=== PATIENT | female | born 1945 | race Caucasian/White ===

== ENCOUNTER 2017-05-25 13:00 | Inpatient (IN) ==
[2017-05-25 14:46] LABS: Basophils # (Auto) 0 K/mcL (0.0-0.3); Basophils % (Auto) 0.3 % (0.0-2.0); Eosinophils # (Auto) 0.2 K/mcL (0.0-0.7); Eosinophils % (Auto) 3.4 % (0.0-7.0); Granulocytes % (Auto) 67.5 % (38.0-78.0); Lymphocytes # (Auto) 1.8 K/mcL (1.5-4.8); Lymphocytes % (Auto) 23.8 % (15.5-49.0); Mean Corpuscular HGB Conc 32.6 g/dL (31.0-36.0); Mean Corpuscular Hemoglobin 26.7 pg (26.0-34.0); Monocytes # (Auto) 0.4 K/mcL (0.1-0.9); Platelet Count 280 K/mcL (140-440); Red Cell Distribution Width 16.1 % (11.5-14.5)
[2017-05-25 15:25] LABS: Appearance,Urine HAZY; Bilirubin,Urine NEG (NEG); Color,Urine YELLOW; Glucose,Urine (UA) NEGATIVE (NEG); Leukocyte Esterase,Urine NEG /uL (NEG); Nitrate,Urine NEG (NEG); Protein,Urine NEG (NEG); Urine Blood NEG mg/dL (<0.03); Urobilinogen,Urine NEG (NEG)
[2017-05-25 15:51] LABS: Blood Urea Nitrogen 32 mg/dl (8-23)
[2017-05-27] MEDS ORDERED: oxyCODONE 10 MG TAB.ER.12H PO SCH (05:00)
[2017-05-27] MEDS ORDERED: GABAPENTIN 100 MG CAPSULE PO SCH (05:00)
[2017-05-27] MEDS ORDERED: ceFAZolin 1 GM VIAL IV SCH (05:00)
[2017-05-27] MEDS ORDERED: CELECOXIB 200 MG CAPSULE PO SCH (05:00)
[2017-05-27] MEDS ORDERED: KETOROLAC 30 MG, ROPIVACAINE HCL/PF 49.5 ML, EPINEPHrine 0.5 MG, 0.9 % SODIUM CHLORIDE ... IJ SCH (06:30)
[2017-05-27] MEDS ORDERED: 0.9 % SODIUM CHLORIDE 250 ML IV SCH (08:00)
[2017-05-27] MEDS: GABAPENTIN 100 MG CAPSULE PO SCH (10:00)
[2017-05-27] MEDS ORDERED: DEXAMETHASONE 10 MG/ML VIAL IV ONE (11:45)
[2017-05-27] MEDS ORDERED: MIDAZOLAM 5 MG/5 ML VIAL IV ONE (11:45)
[2017-05-27] MEDS ORDERED: ROPIVACAINE HCL/PF 30 ML VIAL IJ ONE (11:45)
[2017-05-27] MEDS ORDERED: LIDOCAINE HCL/PF 100 MG/5 ML SYRINGE IV ONE (11:45)
[2017-05-27] MEDS ORDERED: GLYCOPYRROLATE 0.2 MG/ML VIAL IV ONE (11:45)
[2017-05-27] MEDS ORDERED: PROPOFOL 200 MG/20 ML VIAL IV ONE (11:45)
[2017-05-27] MEDS ORDERED: ONDANSETRON 4 MG/2 ML VIAL IV ONE (11:45)
[2017-05-27] MEDS ORDERED: HYDROmorphone 2 MG/ML SYRINGE IV PRN ×2 (13:31→13:35)
[2017-05-27] MEDS ORDERED: ePHEDrine 50 MG/ML AMPUL IV PRN (13:31)
[2017-05-27] MEDS ORDERED: METHOCARBAMOL 1,000 MG/10 ML VIAL IV PRN (13:31)
[2017-05-27] MEDS ORDERED: NALOXONE HCL 0.4 MG/ML VIAL IV PRN (13:31)
[2017-05-27] MEDS ORDERED: fentaNYL 100 MCG/2 ML VIAL IV PRN (13:31)
[2017-05-27] MEDS ORDERED: ATROPINE SULFATE 0.4 MG/ML VIAL IV PRN (13:31)
[2017-05-27] MEDS ORDERED: MEPERIDINE 25 MG/ML SYRINGE IV PRN (13:31)
[2017-05-27] MEDS ORDERED: BENZOCAINE/MENTHOL 1 LOZENGE PO PRN (13:31)
[2017-05-27] MEDS ORDERED: IPRATROPIUM/ALBUTEROL 3 ML AMPUL.NEB NEB PRN (13:31)
[2017-05-27] MEDS ORDERED: METOPROLOL TARTRATE 5 MG/5 ML VIAL IV PRN (13:31)
[2017-05-27] MEDS ORDERED: diphenhydrAMINE 50 MG/ML VIAL IV PRN (13:31)
[2017-05-27] MEDS ORDERED: ONDANSETRON 4 MG/2 ML VIAL IV PRN ×2 (13:31→13:35)
[2017-05-27] MEDS ORDERED: FLUMAZENIL 0.1 MG/ML ML IV PRN (13:31)
[2017-05-27] MEDS ORDERED: MAGNESIUM HYDROXIDE 30 ML ORAL.SUSP PO PRN (13:35)
[2017-05-27] MEDS ORDERED: BISACODYL 10 MG SUPP.RECT PR PRN (13:35)
[2017-05-27] MEDS ORDERED: POLYETHYLENE GLYCOL 3350 17 GM PACKET PO PRN (13:35)
[2017-05-27] MEDS ORDERED: FLEETS ADULT ENEMA PR PRN (13:35)
[2017-05-27] MEDS ORDERED: oxyCODONE/APAP 5/325MG TABLET PO PRN (13:35)
[2017-05-27] MEDS ORDERED: TRANEXAMIC ACID 1,000 MG/10 ML VIAL IV ONE (13:35)
--- NOTE | 2017-05-27 13:35 | Brief Operative Note ---
Date of procedure: 05/27/17 Pre-op diagnosis: Right knee DJD Post-op diagnosis: same Procedure: Right robotic assisted total knee arthroplasty Grafts/Implants: Yes ([place] [employer] PS 2 femur, 3 tibia, 13 mm insert, 33 patella) Anesthesia: spinal, GLMA Findings: arthritis Complications: none Surgeon: Scout Armas Kier Operator: Linwood Hyman Estimated blood loss (cc): 30 Specimens Removed/Pathology: none sent Condition: stable Disposition: PACU
[2017-05-27] MEDS ORDERED: DEXTROSE 50% 50 ML VIAL IV PRN (13:40)
[2017-05-27] MEDS ORDERED: LACTATED RINGERS 1,000 ML IV SCH (13:45)
--- NOTE | 2017-05-27 14:30 | XRay Report ---
CLINICAL INFORMATION: Postsurgical follow-up TECHNIQUE: AP, crosstable lateral, patellar views COMPARISON: None. FINDINGS: Status post right total knee arthroplasty. Femoral and tibial complements are in anatomic positions. Soft tissue and intra-articular gas. There are skin tom anteriorly IMPRESSION: Status post right total knee arthroplasty. Interpreted and Authenticated by: Markell Barboza 05/27/17
[2017-05-27] MEDS: 0.9 % SODIUM CHLORIDE 1,000 ML IV SCH (14:31)
[2017-05-27] MEDS ORDERED: LACTASE 1 TABLET PO PRN (15:00)
[2017-05-27] MEDS: 0.9 % SODIUM CHLORIDE 10 ML SYRINGE IV SCH (15:34)
[2017-05-27] MEDS: metFORMIN 500 MG TABLET PO SCH (17:56)
[2017-05-27] MEDS: KETOROLAC 30 MG/ML VIAL IV SCH (17:56)
[2017-05-27] MEDS: INSULIN LISPRO 1 UNIT/0.01 ML UNIT SQ SCH ×2 (18:00→21:00)
[2017-05-27] MEDS: BENZOCAINE/MENTHOL 1 LOZENGE PO PRN (22:04)
[2017-05-27] MEDS: ASPIRIN 325 MG ENTERIC COATED TABLET PO SCH (22:04)
[2017-05-27] MEDS: DOCUSATE SODIUM 100 MG CAPSULE PO SCH (22:05)
[2017-05-28] MEDS: SENNOSIDES 1 TABLET PO SCH ×2 (00:21→20:57)
[2017-05-28] MEDS: ceFAZolin 1 GM VIAL IV SCH ×2 (00:38→05:11)
[2017-05-28] MEDS: KETOROLAC 30 MG/ML VIAL IV SCH ×4 (00:39→17:23)
[2017-05-28] MEDS: 0.9 % SODIUM CHLORIDE 10 ML SYRINGE IV SCH ×4 (00:55→23:31)
[2017-05-28] MEDS: 0.9 % SODIUM CHLORIDE 1,000 ML IV SCH ×3 (02:00→22:00)
[2017-05-28] MEDS: BENZOCAINE/MENTHOL 1 LOZENGE PO PRN (04:37)
[2017-05-28] MEDS: metFORMIN 500 MG TABLET PO SCH ×2 (07:54→17:22)
[2017-05-28] MEDS: GABAPENTIN 100 MG CAPSULE PO SCH ×2 (07:54→20:55)
[2017-05-28] MEDS: LEVOTHYROXINE 100 MCG TABLET PO SCH (07:54)
[2017-05-28] MEDS: INSULIN LISPRO 1 UNIT/0.01 ML UNIT SQ SCH ×4 (07:54→23:29)
--- NOTE | 2017-05-28 07:58 | Discharge Summary ---
Providers - Providers Patient information: Note initiated : 05/28/17 at 7:56 am Service Date, if different from initiated Date: [] Patient: Deandra Vasquez 72 y/o F admitted on 05/27/17 for Right Total Knee Arthroplasty with Robotic Assist. Chief Complaint: mild pain Discharge date: 05/28/17 Hospitalization Hospital course: Pt was admitted on day of procedure for a R total knee arthroplasty. Pt spent 2 nights on the floor for IV pain meds, IV abx, and PT. Pt was discharged to home with appropriate pain medication and ASA for DVT prophylaxis. Pt will follow-up at [facility] in 2 weeks. Discharge diagnosis: R knee osteoarthrosis Exam - Exam Clean and dry: Yes Weight bearing status: as tolerated Ortho Discharge - TKA - Patient Instructions Diet: Regular Diet Activity: activity as tolerated Total Knee Protocol: For Total Knee: Start ROM MOE with stationary bike or rocking chair. Work on gaining full extension of knee. Posterior dislocation precautions provided. Hip abductor strengthening and gait training instructions provided. Apply Cryocuff as instructed. Dressing Care: May shower in 2 days - Follow Up Plan Disposition: Home, Self-Care Prognosis: Good Rehab Potential: Good Overall status at discharge: patient is progressing back to baseline - Orders For Discharge Prescriptions: HYDROcodone/APAP 10/325MG [[place] 10/325Mg] 1 - 2 tab PO Q4-6HP PRN #90 tablet PRN Reason: Pain Additional Discharge Orders: Physical Therapy at Discharge - TKA Location: Determined By Patient Walker Location: Determined By Patient Pending Studies Resuscitation Status Full Code Diet Consistent Carbohydrate Diet Start ThuMay 27 Dinner Aspirin (Ecotrin) 325 mg PO BID [facility] Last Admin: 05/27/17 22:04 Dose: 325 mg Diagnostic Test (Pha) (Accu-Chek) 1 each FS ACHS [facility] Last Admin: 05/28/17 07:53 Dose: 1 each Admin: 05/27/17 21:42 Dose: 1 each Admin: 05/27/17 17:57 Dose: 1 each Docusate Sodium (Colace) 100 mg PO BID [facility] Last Admin: 05/27/17 22:05 Dose: 100 mg Gabapentin (Neurontin) 200 mg PO BID [facility] Last Admin: 05/28/17 07:54 Dose: 200 mg Admin: 05/27/17 10:00 Dose: 200 mg Sodium Chloride (Sodium Chloride 0.9%) 1,000 mls @ 100 mls/hr IV .Q10H [facility] Last Admin: 05/28/17 02:00 Dose: 100 mls/hr Infusion: 05/28/17 00:31 Dose: 100 mls/hr Admin: 05/27/17 14:31 Dose: 100 mls/hr Insulin Human Lispro (Humalog) 0 unit SQ ACHS [facility] PRN Reason: Protocol Last Admin: 05/28/17 07:54 Dose: 2 unit Admin: 05/27/17 21:00 Dose: Not Given Admin: 05/27/17 18:00 Dose: Not Given Ketorolac Tromethamine (Toradol) 30 mg IV Q6 [facility] Stop: 05/29/17 12:01 Last Admin: 05/28/17 05:59 Dose: 30 mg Admin: 05/28/17 00:39 Dose: 30 mg Admin: 05/27/17 17:56 Dose: 30 mg Levothyroxine Sodium (Synthroid) 100 mcg PO QAMAC [facility] Last Admin: 05/28/17 07:54 Dose: 100 mcg Metformin HCl (Glucophage) 500 mg PO BIDCC [facility] Last Admin: 05/28/17 07:54 Dose: 500 mg Admin: 05/27/17 17:56 Dose: 500 mg Senna (Senokot) 2 tab PO HS [facility] Last Admin: 05/28/17 00:21 Dose: Not Given Sodium Chloride (Saline Flush) 10 ml IV Q8 [facility] Last Admin: 05/28/17 05:49 Dose: Not Given Admin: 05/28/17 00:55 Dose: Not Given Admin: 05/27/17 15:34 Dose: Not Given Throat Lozenges (Cepacol) 1 lozenge PO PRN PRN PRN Reason: Sore Throat Last Admin: 05/28/17 04:37 Dose: 1 lozenge Admin: 05/27/17 22:04 Dose: 1 lozenge Shift Summary 05/28/17 04:09 Shift Summary by Zayda King Patient is alert and oriented x 4. Right leg is bandaged - Clean, dry, and intact. Bandaged not removed. Pedal pulse and capillary refill are WDL's to right leg. Patient is up to the bathroom x 1 this evening - good ambulation. Post void bladder scan = < 10. Pedal pumps on. Patient refuses ice packs to right knee. Toradol given x 1 with good effect. NS infusing @ 100mls/hr to left forearm IV. Initialized on 05/28/17 04:09 - END OF NOTE
[2017-05-28] MEDS ORDERED: PRAVASTATIN 20 MG TABLET PO SCH (09:00)
[2017-05-28] MEDS: SIMVASTATIN 10 MG TABLET PO SCH (09:21)
[2017-05-28] MEDS: MULTIVIT,THER IRON,CA,FA & MIN 1 TABLET PO SCH (09:22)
[2017-05-28] MEDS: PARoxetine 20 MG TABLET PO SCH (09:22)
[2017-05-28] MEDS: DOCUSATE SODIUM 100 MG CAPSULE PO SCH ×2 (09:22→20:56)
[2017-05-28] MEDS: ALLOPURINOL 100 MG TABLET PO SCH (09:22)
[2017-05-28] MEDS: MAGNESIUM OXIDE 400 MG TABLET PO SCH (09:23)
[2017-05-28] MEDS: LISINOPRIL 10 MG TABLET PO SCH (09:24)
[2017-05-28] MEDS: ASPIRIN 325 MG ENTERIC COATED TABLET PO SCH ×2 (09:25→20:56)
[2017-05-28] MEDS: METOPROLOL SUCCINATE 50 MG TAB.XL.24H PO SCH ×2 (09:45→17:22)
[2017-05-28] MEDS: CALCIUM MAGNESIUM ZINC PO SCH (09:46)
[2017-05-28] MEDS: traMADol 50 MG TABLET PO PRN ×3 (11:57→20:56)
[2017-05-28] MEDS ORDERED: CALCIUM CARBONATE 500 MG TAB.CHEW CHEWED ONE (17:16)
[2017-05-29] MEDS: KETOROLAC 30 MG/ML VIAL IV SCH ×3 (00:05→14:05)
[2017-05-29] MEDS: traMADol 50 MG TABLET PO PRN ×2 (01:55→06:41)
[2017-05-29] MEDS: 0.9 % SODIUM CHLORIDE 10 ML SYRINGE IV SCH (05:43)
[2017-05-29] MEDS: 0.9 % SODIUM CHLORIDE 1,000 ML IV SCH (05:55)
[2017-05-29] MEDS: LEVOTHYROXINE 100 MCG TABLET PO SCH (06:41)
[2017-05-29] MEDS: INSULIN LISPRO 1 UNIT/0.01 ML UNIT SQ SCH ×2 (06:44→11:39)
[2017-05-29] MEDS: metFORMIN 500 MG TABLET PO SCH (08:05)
[2017-05-29] MEDS: LISINOPRIL 10 MG TABLET PO SCH (08:49)
[2017-05-29] MEDS: PARoxetine 20 MG TABLET PO SCH (08:49)
[2017-05-29] MEDS: SIMVASTATIN 10 MG TABLET PO SCH (08:49)
[2017-05-29] MEDS: DOCUSATE SODIUM 100 MG CAPSULE PO SCH (08:49)
[2017-05-29] MEDS: ASPIRIN 325 MG ENTERIC COATED TABLET PO SCH (08:49)
[2017-05-29] MEDS: MAGNESIUM OXIDE 400 MG TABLET PO SCH (08:49)
[2017-05-29] MEDS: GABAPENTIN 100 MG CAPSULE PO SCH (08:49)
[2017-05-29] MEDS: MULTIVIT,THER IRON,CA,FA & MIN 1 TABLET PO SCH (08:49)
[2017-05-29] MEDS: ALLOPURINOL 100 MG TABLET PO SCH (08:49)
[2017-05-29] MEDS: METOPROLOL SUCCINATE 50 MG TAB.XL.24H PO SCH (08:50)
[2017-05-29] MEDS: CALCIUM MAGNESIUM ZINC PO SCH (08:50)
--- NOTE | 2017-05-29 12:03 | Orthopedic Progress Note ---
Subjective Patient information: Note initiated : 05/29/17 at 12:01 pm Service Date, if different from initiated Date: [] Patient: Deandra Vasquez 72 y/o F admitted on 05/27/17 for Right Total Knee Arthroplasty with Robotic Assist. Chief Complaint: [] Interval history: Pain bad overnight, better now with the percocet Objective Vital signs: Vital Signs Temp Pulse Resp BP Pulse Ox 05/29/17 11:20 98.1 F 20 154/64 97 05/29/17 06:19 98.8 F 16 137/65 96 05/29/17 04:00 97.1 F 62 18 138/64 95 05/29/17 00:00 98.1 F 59 L 16 145/71 97 05/28/17 20:00 98.5 F 65 18 133/87 97 05/28/17 15:34 97.7 F 59 L 22 131/53 98 Intake and Output 05/28/17 05/29/17 05/29/17 21:59 05:59 13:59 Intake Total 720 / 720 690 / 690 540 / 540 Output Total 1600 / 1600 800 / 800 Balance 720 / 720 -910 / -910 -260 / -260 Intake: Oral 480 / 480 690 / 690 540 / 540 GI Tube Flush 240 / 240 Output: Void Amount 1600 / 1600 800 / 800 Other: Meal Snack Breakfast Percent of Meal Consumed 100% 100% Feeding Ability Independent # Voids 2 Weight 212 lb 8 oz Intake & Output: Intake & Output 05/28/17 05/29/17 05/29/17 21:59 05:59 13:59 Intake Total 720 / 720 690 / 690 540 / 540 Output Total 1600 / 1600 800 / 800 Balance 720 / 720 -910 / -910 -260 / -260 Weight 212 lb 8 oz Intake: Oral 480 / 480 690 / 690 540 / 540 GI Tube Flush 240 / 240 Output: Void Amount 1600 / 1600 800 / 800 Other: Meal Snack Breakfast Percent of Meal Consumed 100% 100% Feeding Ability Independent # Voids 2 Dressing: Yes clean, Yes dry, Yes intact Neurological exam IM: Yes neurovascular intact - Labs CBC & BMP: 05/29/17 05:19 05/25/17 13:52 Labs: Orthopedic Labs 05/25/17 13:52 PT 13.3 INR 1.0 05/29/17 05/28/17 05/25/17 05:19 04:51 13:52 Hgb 8.4 L 9.6 L 11.8 L Hct 25.6 L 29.5 L 36.1 Assessment and Plan (1) Status post total knee replacement POD#2 s/p R TKA-stable -d/c home Status: Acute
== END 2017-05-29 13:35 | disposition home or self-care (01) | DRG 470 ==
LOC: MEDSUR 05-27 08:00
PROVIDERS: ADMIT Orthopaedic Surgery; ATTEND Orthopaedic Surgery